=== PATIENT | male | born 1980 | race Caucasian/White ===

== ENCOUNTER 2017-02-23 10:23 | Observation (INO) | payer BC ==
[2017-02-23] VITALS (13 sets, daily range): BP systolic 116–143; BP diastolic 76–92; PULSE 48–66; RESP 18; TEMP 97.9; O2SAT 95–98
[~2017-02-23] VITALS: Ht 182.9 cm; Wt 101.9 kg
[~2017-02-23 10:23] MED LIST: AMIO200T PO; Aspirin Chew PO; CELE40TA PO; CLON1TAB PO; ISOS30TA3 PO; LIPI40TA PO; LISI-519 PO; METF1000 PO; METO-338 PO; OMEP40CA2 PO; PLAV75TA29 PO
[2017-02-23] MEDS ORDERED: LISI-519 PO (10:37)
[2017-02-23] MEDS ORDERED: METO25TA3 PO (10:37)
[2017-02-23] MEDS ORDERED: ASPI81CH37 CHEW (10:37)
[2017-02-23] MEDS ORDERED: PARO20TA2 PO (10:37)
--- NOTE | 2017-02-23 10:39 | PD ---
HPI Chief Complaint: Chest Pain Time Seen by Provider: 10:36 Travel History International Travel<30 days: No Contact w/Intl Traveler<30days: No Traveled to known affect area: No History of Present Illness HPI 36-year-old male with history of previous [place], hypertension, diabetes, presents to the ER today for 3 days history of substernal 3 out of 10 chest discomfort which she states is constant. He denies any nausea, vomiting, but did have some shortness of breath when he picked up his son a few days ago. He denies any fevers, coughing, or other symptoms. Modifying Factors: None Associated Signs & Symptoms: Substernal chest pain Risk Factors: Cardiac history PFSH Past Medical History Anxiety: Yes Heart Rhythm Problems: No Cardiac Catheterization: No Cardiovascular Problems: Yes High Cholesterol: Yes Chest Pain: Yes Congestive Heart Failure: No Coronary Artery Disease: Yes Diabetes: Yes Patient Takes Glucophage: No Diminished Hearing: No Hypertension: Yes Inguinal Hernia: Yes (REPAIRED) Kidney Stones: Yes Neurologic: Yes (OCD, PANIC ATTACKS) Psychiatric: Yes (OCD, PANIC ATTACKS) Immunizations Current: Yes Myocardial Infarction: No Influenza Vaccination: No ?: Not Past Surgical History Abdominal Surgery: Yes (BILATERAL INGUINAL HERNIA REPAIR AT 5 YEARS OLD) Coronary Artery Bypass Graft: No Other Surgery: Yes Social History 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) Tobacco Use: No (quit) Substance Use: No Allergies-Medications (Allergen,Severity, Reaction): Uncoded Allergies: SNUGGLE FABRIC SOFTENER (Allergy, Severe, Rash, 04/21/16) Reported Meds & Prescriptions Reported Meds & Active Scripts Active Lipitor (Atorvastatin Calcium) 40 Mg Tab 40 Mg PO HS Isosorbide Mononitrate ER (Isosorbide Mononitrate) 30 Mg Raf 30 Mg PO DAILY@07 Plavix (Clopidogrel Bisulfate) 75 Mg Tab 75 Mg PO DAILY 30 Days Reported Paroxetine (Paroxetine HCl) 20 Mg Tab 25 Mg PO DAILY Metoprolol Tartrate 25 Mg Tab 12.5 Mg PO BID Aspirin Low Dose (Aspirin) 81 Mg Chew 81 Mg CHEW DAILY Lisinopril 5 Mg Tab 5 Mg PO HS Clonazepam 1 Mg Tab 1 Mg PO HS Review of Systems Except as stated in HPI: all other systems reviewed are Neg Physical Exam Narrative GENERAL: Well-developed middle age male patient currently in mild distress. Awake and oriented 3. SKIN: Focused skin assessment warm/dry. HEAD: Atraumatic. Normocephalic. EYES: Pupils equal and round. No scleral icterus. No injection or drainage. ENT: No nasal bleeding or discharge. Mucous membranes pink and moist. NECK: Trachea midline. No JVD. CARDIOVASCULAR: Regular rate and rhythm. No murmur appreciated. Pulses are present and equal bilaterally. RESPIRATORY: No accessory muscle use. Clear to auscultation. Breath sounds equal bilaterally. GASTROINTESTINAL: Abdomen soft, non-tender, nondistended. Hepatic and splenic margins not palpable. MUSCULOSKELETAL: No obvious deformities. No clubbing. No cyanosis. No edema. NEUROLOGICAL: Awake and alert. No obvious cranial nerve deficits. Motor grossly within normal limits. Normal speech. PSYCHIATRIC: Appropriate mood and affect; insight and judgment normal. Data Data Last Documented VS Vital Signs Date Time Temp Pulse Resp B/P (MAP) Pulse Ox O2 Delivery O2 Flow Rate FiO2 02/23/17 11:26 50 18 140/77 (98) 98 Room Air Orders Orders Electrocardiogram (02/23/17 10:36) Ckmb (Isoenzyme) Profile (02/23/17 10:36) Complete Blood Count With Diff (02/23/17 10:36) Comprehensive Metabolic Panel (02/23/17 10:36) Magnesium (Mg) (02/23/17 10:36) Prothrombin Time / Inr (Pt) (02/23/17 10:36) Act Partial Throm Time (Ptt) (02/23/17 10:36) Troponin I (02/23/17 10:36) Chest, Single Ap (02/23/17 10:36) Ecg Monitoring (02/23/17 10:36) Bilateral Bp Monitoring (02/23/17 10:36) Iv Access Insert/Monitor (02/23/17 10:36) Oximetry (02/23/17 10:36) Oxygen Administration (02/23/17 10:36) Aspirin Chew (Aspirin Chew) (02/23/17 10:45) Nitroglycerin 2% Oint (Nitroglycerin 2% (02/23/17 10:45) Sodium Chloride 0.9% Flush (Ns Flush) (02/23/17 10:45) Consult Cardiology (02/23/17 ) (Hub Use Only)Inp Phy Cons/Ref (02/23/17 ) Labs Laboratory Tests Test 02/23/17 10:30 White Blood Count 5.5 TH/MM3 Red Blood Count 4.49 MIL/MM3 Hemoglobin 13.8 GM/DL Hematocrit 40.5 % Mean Corpuscular Volume 90.3 FL Mean Corpuscular Hemoglobin 30.8 PG Mean Corpuscular Hemoglobin Concent 34.1 % Red Cell Distribution Width 11.7 % Platelet Count 140 TH/MM3 Mean Platelet Volume 7.9 FL Neutrophils (%) (Auto) 59.0 % Lymphocytes (%) (Auto) 28.5 % Monocytes (%) (Auto) 9.8 % Eosinophils (%) (Auto) 1.6 % Basophils (%) (Auto) 1.1 % Neutrophils # (Auto) 3.2 TH/MM3 Lymphocytes # (Auto) 1.6 TH/MM3 Monocytes # (Auto) 0.5 TH/MM3 Eosinophils # (Auto) 0.1 TH/MM3 Basophils # (Auto) 0.1 TH/MM3 CBC Comment DIFF FINAL Differential Comment Prothrombin Time 11.4 SEC Prothromb Time International Ratio 1.0 RATIO Activated Partial Thromboplast Time 27.8 SEC Blood Urea Nitrogen 9 MG/DL Creatinine 0.77 MG/DL Random Glucose 169 MG/DL Total Protein 7.3 GM/DL Albumin 4.0 GM/DL Calcium Level 8.3 MG/DL Magnesium Level 1.7 MG/DL Alkaline Phosphatase 69 U/L Aspartate Amino Transf (AST/SGOT) 18 U/L Alanine Aminotransferase (ALT/SGPT) 35 U/L Total Bilirubin 0.7 MG/DL Sodium Level 139 MEQ/L Potassium Level 4.2 MEQ/L Chloride Level 103 MEQ/L Carbon Dioxide Level 27.9 MEQ/L Anion Gap 8 MEQ/L Estimat Glomerular Filtration Rate 113 ML/MIN Total Creatine Kinase 95 U/L Troponin I LESS THAN 0.02 NG/ML MDM Medical Decision Making Medical Screen Exam Complete: Yes Emergency Medical Condition: Yes Medical Record Reviewed: Yes Interpretation(s) EKG shows sinus bradycardia at a rate of 52 bpm with T-wave inversions in 3 and aVF. No signs of acute ST-T elevations. Laboratory Tests Test 02/23/17 10:30 Red Blood Count 4.49 MIL/MM3 (4.50-5.90) Platelet Count 140 TH/MM3 (150-450) Monocytes (%) (Auto) 9.8 % (0.0-8.0) Random Glucose 169 MG/DL (74-106) Calcium Level 8.3 MG/DL (8.5-10.1) Troponin I LESS THAN 0.02 NG/ML Last 24 hours Impressions Chest X-Ray 02/23/17 1036 Signed Impressions: Service Date/Time: Thursday, February 23, 2017 10:42 - CONCLUSION: No acute disease. Sunny Horton MD FACR Differential Diagnosis Substernal chest pains: ACS versus musculoskeletal versus anxiety versus dysrhythmia Narrative Course EKG did not show any signs of acute ST elevation or depressions. Cardiac enzymes are negative. Patient was given aspirin and nitroglycerin in the ER with some improvement chest discomfort. At this point, the case was discussed with who is covering for Dr. James and he states the patient to be transferred to [facility] for admission medically and consult to cardiology. He states that the patient has significant cardiac risk factors. Case is discussed with Dr. Blancas for admission. Diagnosis Primary Impression: Chest pain Admitting Information Admitting Physician Requests: Admit Jamal Kathleen MD Feb 23, 2017 10:39
[2017-02-23] MEDS ORDERED: SODIUM CHLORIDE 0.9% FLUSH 10 ML FLUSH IVF PRN (10:45)
[2017-02-23] MEDS ORDERED: NITROGLYCERIN 2% OINT 1 GM PACKET TOP ONE (10:45)
[2017-02-23] MEDS ORDERED: ASPIRIN 81 MG CHEW TAB PO ONE (10:45)
[2017-02-23 10:53] LABS: AUTOMATED NEUTROPHIL # 3.2 TH/MM3 (1.8-7.7); BASOPHIL # 0.1 TH/MM3 (0-0.2); BASOPHIL % 1.1 % (0.0-2.0); EOSINOPHIL # 0.1 TH/MM3 (0-0.4); EOSINOPHIL % 1.6 % (0.0-4.0); HEMATOCRIT 40.5 % (39.0-51.0); HEMO FLAGS DIFF FINAL; LYMPH % 28.5 % (9.0-44.0); LYMPHOCYTE # 1.6 TH/MM3 (1.0-4.8); MEAN CELL VOLUME 90.3 FL (80.0-100.0); MEAN CORPUSCULAR HEMOGLOBIN 30.8 PG (27.0-34.0); MEAN CORPUSCULAR HGB CONC 34.1 % (32.0-36.0); MONO % 9.8 % (0.0-8.0); PLATELET COUNT 140 TH/MM3 (150-450); RED BLOOD COUNT 4.49 MIL/MM3 (4.50-5.90); RED CELL DISTRIBUTION WIDTH 11.7 % (11.6-17.2); WHITE BLOOD COUNT 5.5 TH/MM3 (4.0-11.0)
--- NOTE | 2017-02-23 10:59 | RADRPT ---
EXAM DATE/TIME: 02/23/2017 10:42 [facility] COMPARISON: CHEST SINGLE AP, April 23, 2016, 7:49. INDICATIONS : Chest pain MEDICAL HISTORY : Myocardial infarction. Diabetes mellitus type II. Hypercholesterolemia. Hypertension, CAD, Smoker SURGICAL HISTORY : Cardiac catherization ENCOUNTER: Initial ACUITY: 4 - 6 days PAIN SCORE: 4/10 LOCATION: Bilateral chest FINDINGS: A single view of the chest demonstrates the lungs to be symmetrically aerated without evidence of mas s, infiltrate or effusion. The cardiomediastinal contours are unremarkable. Osseous structures are intact. CONCLUSION: No acute disease. Sunny Horton MD FACR on February 23, 2017 at 10:51 Board Certified Radiologist. This report was verified electronically.
[2017-02-23 11:00] LABS: CHLORIDE 103 MEQ/L (98-107); POTASSIUM 4.2 MEQ/L (3.5-5.1); SODIUM (NA) 139 MEQ/L (136-145)
[2017-02-23 11:03] LABS: ANION GAP 8 MEQ/L (5-15); BICARBONATE 27.9 MEQ/L (21.0-32.0)
[2017-02-23 11:04] LABS: BLOOD UREA NITROGEN 9 MG/DL (7-18); MAGNESIUM 1.7 MG/DL (1.5-2.5)
[2017-02-23 11:05] LABS: APTT (PATIENT) 27.8 SEC (24.3-30.1); PROTHROMBIN TIME - PATIENT 11.4 SEC (9.8-11.6)
[2017-02-23 11:06] LABS: ALT (GPT) 35 U/L (12-78)
[2017-02-23 11:07] LABS: AST (GOT) 18 U/L (15-37); GLOMERULAR FILTRATION RATE 113 ML/MIN (>89)
[2017-02-23 11:08] LABS: TOTAL BILIRUBIN ADULT 0.7 MG/DL (0.2-1.0)
[2017-02-23 11:09] LABS: ALKALINE PHOSPHATASE 69 U/L (45-117)
[2017-02-23 11:21] LABS: CREATINE KINASE 95 U/L (39-308)
[2017-02-23] MEDS ORDERED: SODIUM CHLORIDE 0.9% FLUSH 10 ML FLUSH IV FLUSH PRN (12:15)
[2017-02-23] MEDS: METOPROLOL TARTRATE 25 MG TAB PO SCH ×2 (12:15→21:19)
[2017-02-23] MEDS: CLOPIDOGREL 75 MG TAB PO SCH (12:15)
[2017-02-23] MEDS: ENOXAPARIN SODIUM 40 MG/0.4 ML SYRINGE SQ SCH (13:02)
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
[2017-02-23] MEDS ORDERED: DEXTROSE 50% IN WATER 50 ML VIAL(D50) IV PRN (15:00)
[2017-02-23] MEDS ORDERED: GLUCAGON 1 MG/ML VIAL OTHER PRN (15:00)
[2017-02-23] MEDS: INSULIN ASPART SUPPLEMENTAL SCALE SQ SCH ×2 (16:15→21:00)
[2017-02-23] MEDS: ACETAMINOPHEN 500 MG CPLT PO PRN ×2 (16:44→23:25)
[2017-02-23 17:24] LABS: CREATINE KINASE 83 U/L (39-308)
--- NOTE | 2017-02-23 21:03 | EKG ---
Date Performed: 02/23/2017 Time Performed: 10:29:53 PTAGE: 36 years EKG: SINUS BRADYCARDIA INFERIOR MYOCARDIAL INFARCTION ABNORMAL ECG Compared to the PREVIOUS TRACING inferior ST elevation no longer present DOCTOR: Alexander James Interpretating Date/Time 02/23/2017 21:02:12
[2017-02-23] MEDS: LISINOPRIL 5 MG TAB PO SCH (21:19)
[2017-02-23] MEDS: clonazePAM 1 MG TAB PO SCH (21:19)
[2017-02-23] MEDS: SODIUM CHLORIDE 0.9% FLUSH 10 ML FLUSH IV FLUSH SCH (21:19)
[2017-02-23] MEDS: ATORVASTATIN 40 MG TAB PO SCH (21:19)
[2017-02-24] VITALS (24 sets, daily range): BP systolic 125–142; BP diastolic 78–83; PULSE 47–102; RESP 18–20; TEMP 98–99.2; O2SAT 94–97
[2017-02-24 01:32] LABS: CREATINE KINASE 65 U/L (39-308)
[2017-02-24] MEDS: ISOSORBIDE MONONITRATE 30 MG TAB PO SCH (06:02)
[2017-02-24 07:09] LABS: HDL CHOLESTEROL 31.4 MG/DL (40.0-60.0)
[2017-02-24] MEDS: INSULIN ASPART SUPPLEMENTAL SCALE SQ SCH ×4 (08:00→20:42)
[2017-02-24] MEDS: ASPIRIN 325 MG TAB PO SCH (08:14)
[2017-02-24] MEDS: METOPROLOL TARTRATE 25 MG TAB PO SCH ×2 (08:14→20:36)
[2017-02-24] MEDS: CLOPIDOGREL 75 MG TAB PO SCH (08:14)
[2017-02-24] MEDS: SODIUM CHLORIDE 0.9% FLUSH 10 ML FLUSH IV FLUSH SCH ×2 (08:14→20:36)
[2017-02-24] MEDS: PARoxetine 25 MG CONTROLLED RELEASE TAB PO SCH (08:20)
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
[2017-02-24] MEDS: ENOXAPARIN SODIUM 40 MG/0.4 ML SYRINGE SQ SCH (12:11)
--- NOTE | 2017-02-24 14:30 | EKG ---
Date Performed: 02/23/2017 Time Performed: 22:20:42 PTAGE: 36 years EKG: Sinus rhythm Inferior myocardial infarction, age undetermined Nonspecific T wave changes anteriorly Since previou s tracing T-waves somewhat more flattened and inverted anteriorly, otherwise no significant change Ab normal ECG PREVIOUS TRACING : 02/23/2017 16.18 DOCTOR: Jacob Love Interpretating Date/Time 02/24/2017 14:30:11
--- NOTE | 2017-02-24 14:30 | EKG ---
Date Performed: 02/23/2017 Time Performed: 16:18:21 PTAGE: 36 years EKG: SINUS BRADYCARDIA INFERIOR MYOCARDIAL INFARCTION Compared to previous tracing no significan t change ABNORMAL ECG PREVIOUS TRACING : 02/23/2017 10.29 DOCTOR: Jacob Love Interpretating Date/Time 02/24/2017 14:29:00
[2017-02-24 16:14] LABS: HEMOGLOBIN A1b 1.6 %; HEMOGLOBIN Ao 85.4 %; HEMOGLOBIN LA1C 1.9 %; HEMOGLOBIN P3 3.6 %
--- NOTE | 2017-02-24 18:44 | HHI.PR ---
Subjective Remarks pt says his pain has been almost gone, says it is a little relieved with belching Objective Vital Signs Date Time Temp Pulse Resp B/P (MAP) Pulse Ox O2 Delivery O2 Flow Rate FiO2 02/24/17 18:07 68 02/24/17 17:36 102 02/24/17 17:30 98.9 62 18 138/83 (101) 97 02/24/17 14:44 72 02/24/17 13:01 63 02/24/17 12:00 64 02/24/17 11:00 54 02/24/17 11:00 98.1 60 18 142/83 (102) 97 02/24/17 10:11 56 02/24/17 09:00 58 02/24/17 08:51 56 02/24/17 07:00 98.7 62 18 129/79 (96) 97 02/24/17 07:00 63 02/24/17 06:00 52 02/24/17 05:00 51 02/24/17 04:00 49 02/24/17 03:30 98.0 55 18 125/78 (94) 97 02/24/17 03:00 49 02/24/17 02:00 53 02/24/17 01:00 47 02/24/17 00:00 57 02/23/17 23:30 97.9 65 18 130/83 (99) 95 02/23/17 23:00 58 02/23/17 22:00 52 02/23/17 21:30 58 02/23/17 21:30 62 18 134/92 (106) 97 02/23/17 20:21 62 18 98 02/23/17 20:20 62 18 136/78 (97) 98 Room Air 02/23/17 19:28 66 Room Air 21 02/23/17 19:26 66 18 142/85 (104) 97 Room Air I/O 02/23/17 02/23/17 02/23/17 02/24/17 02/24/17 02/24/17 07:00 15:00 23:00 07:00 15:00 23:00 Intake Total 360 ml 360 ml 480 ml 650 ml Output Total 300 ml 900 ml 1000 ml 900 ml Balance 60 ml -540 ml -520 ml -250 ml Intake Oral 360 ml 360 ml 480 ml 650 ml Output Urine Total 300 ml 900 ml 1000 ml 900 ml # Voids 1 2 # Bowel Movements 0 1 Result Diagram: 02/23/17 1030 02/23/17 1030 Objective Remarks No acute distress Respiratory: Nonlabored breathing, no dyspnea Cardiovascular: Regular rate and rhythm, no murmurs A/P Assessment and Plan Unstable angina 36-year-old male with known history of coronary disease, hypertension, hyperlipidemia completely excluded RCA by previous cardiac catheterization presented with persistent chest discomfort relieved by nitroglycerin [place] trended negative ruling out myocardial infarction EKG shows sinus bradycardia, T-wave changes in lead II and aVF. Continue to trend EKGs Cardiology consulted, no intervention today, I will change the patient nothing by mouth after midnight in touch base cardiology in the morning to see if nuclear stress test is warranted aspirin, beta isidro, nitroglycerin, statin, BUBBA inhibitor, Plavix Diabetes Check hemoglobin A1c Accu-Cheks with sliding scale insulin DVT prevention Subcutaneous Lovenox Jarrett Mccoy MD Feb 24, 2017 18:44
[2017-02-24] MEDS: LISINOPRIL 5 MG TAB PO SCH (20:35)
[2017-02-24] MEDS: ATORVASTATIN 40 MG TAB PO SCH (20:36)
[2017-02-24] MEDS: clonazePAM 1 MG TAB PO SCH (20:36)
[2017-02-25] VITALS (20 sets, daily range): BP systolic 106–131; BP diastolic 60–91; PULSE 50–71; RESP 20; TEMP 98–98.8; O2SAT 96–98
[2017-02-25] MEDS: ISOSORBIDE MONONITRATE 30 MG TAB PO SCH (06:51)
[2017-02-25] MEDS: INSULIN ASPART SUPPLEMENTAL SCALE SQ SCH ×2 (08:00→12:00)
[2017-02-25] MEDS: PARoxetine 25 MG CONTROLLED RELEASE TAB PO SCH (08:29)
[2017-02-25] MEDS: METOPROLOL TARTRATE 25 MG TAB PO SCH (08:29)
[2017-02-25] MEDS: ASPIRIN 325 MG TAB PO SCH (08:29)
[2017-02-25] MEDS: SODIUM CHLORIDE 0.9% FLUSH 10 ML FLUSH IV FLUSH SCH (08:29)
[2017-02-25] MEDS: CLOPIDOGREL 75 MG TAB PO SCH (08:32)
[2017-02-25] MEDS: ENOXAPARIN SODIUM 40 MG/0.4 ML SYRINGE SQ SCH (13:00)
--- NOTE | 2017-02-25 14:09 | PD.CARD.PN ---
Subjective Subjective Remarks No CP or SOB, ambulating without difficulty Objective Vital Signs / I&O Vital Signs Date Time Temp Pulse Resp B/P (MAP) Pulse Ox O2 Delivery O2 Flow Rate FiO2 02/25/17 13:49 63 02/25/17 12:10 62 02/25/17 11:38 98.8 71 20 123/81 (95) 98 02/25/17 11:00 62 02/25/17 10:27 58 02/25/17 09:29 58 02/25/17 08:00 62 02/25/17 07:00 61 02/25/17 07:00 98.0 62 20 131/91 (104) 96 02/25/17 06:00 61 02/25/17 05:15 98.3 62 20 106/60 (75) 97 02/25/17 05:00 50 02/25/17 04:00 51 02/25/17 03:00 64 02/25/17 02:00 60 02/25/17 01:00 60 02/25/17 00:00 98.2 62 20 113/67 (82) 98 02/25/17 00:00 56 02/25/17 00:00 98.2 62 20 113/67 (82) 98 02/24/17 23:00 50 02/24/17 22:00 60 02/24/17 21:00 58 02/24/17 20:00 64 02/24/17 20:00 99.2 65 20 127/81 (96) 94 02/24/17 19:00 63 02/24/17 18:07 68 02/24/17 17:36 102 02/24/17 17:30 98.9 62 18 138/83 (101) 97 02/24/17 14:44 72 I/O 02/24/17 02/24/17 02/24/17 02/25/17 02/25/17 02/25/17 07:00 15:00 23:00 07:00 15:00 23:00 Intake Total 480 ml 650 ml 480 ml Output Total 1000 ml 900 ml 400 ml Balance -520 ml -250 ml 80 ml Intake Oral 480 ml 650 ml 480 ml IV Total 0 ml Output Urine Total 1000 ml 900 ml 400 ml # Bowel Movements 0 1 0 Physical Exam GENERAL: In NAD. SKIN: Warm and dry. HEAD: Normocephalic. EYES: No scleral icterus. No injection or drainage. NECK: Supple, trachea midline. No JVD or lymphadenopathy. CARDIOVASCULAR: Regular rate and rhythm without murmurs, gallops, or rubs. RESPIRATORY: Breath sounds equal bilaterally. No accessory muscle use. GASTROINTESTINAL: Abdomen soft, non-tender, nondistended. MUSCULOSKELETAL: No cyanosis, or edema. Assessment and Plan Problem List: (1) Chest pain ICD Codes: R07.9 - Chest pain, unspecified Status: Acute (2) HTN (hypertension) ICD Codes: I10 - Essential (primary) hypertension Status: Acute (3) Hyperlipidemia ICD Codes: E78.5 - Hyperlipidemia, unspecified Status: Acute (4) Diabetes 1.5, managed as type 2 ICD Codes: E13.9 - Other specified diabetes mellitus without complications Status: Acute (5) CAD (coronary artery disease) ICD Codes: I25.10 - Atherosclerotic heart disease of [place] coronary artery without angina pectoris Assessment and Plan No recurrent CP. Symptoms likely of musculoskeletal/chest wall origin. Feels better. Enzymes negative. Rhythm stable. DC home. Will schedule f/u with me next week. Alexander James MD Feb 25, 2017 14:09
--- NOTE | 2017-02-25 15:33 | HHI.DCPOC ---
Discharge Care Plan Goals to Promote Your Health * To prevent worsening of your condition and complications * To maintain your health at the optimal level musculoskeletal chest pain Directions to Meet Your Goals Take your medications as prescribed Follow your dietary instruction Follow activity as directed Keep your appointments as scheduled Take your immunizations and boosters as scheduled If your symptoms worsen call your PCP, if no PCP go to Urgent Care Center or Emergency Room Smoking is Dangerous to Your Health. Avoid second hand smoke Call the 24-hour hour crisis hotline for domestic abuse at Jarrett Mccoy MD Feb 25, 2017 15:33
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
== END 2017-02-25 17:07 | disposition home or self-care (01) ==
LOC: PHED 10:23 → INTOOBSV 12:15 → PHEDA 12:15 → HCIS 20:49
PROVIDERS: ADMIT Hospitalist; ATTEND Hospitalist
DX: R07.89 Other chest pain (principal); I25.10 Atherosclerotic heart disease of native coronary artery without angina pectoris; I10 Essential (primary) hypertension; I25.2 Old myocardial infarction; E11.9 Type 2 diabetes mellitus without complications; I48.91 Unspecified atrial fibrillation; E78.00 Pure hypercholesterolemia, unspecified; R20.9 Unspecified disturbances of skin sensation; R94.31 Abnormal electrocardiogram [ECG] [EKG]; Z95.810 Presence of automatic (implantable) cardiac defibrillator; Z79.84 Long term (current) use of oral hypoglycemic drugs; Z87.891 Personal history of nicotine dependence
CPT/HCPCS: 71010; 80053; 80061; 82550; 82948; 83036; 83735; 84484; 85025; 85610; 85730; 93005; 96372; 99285; G0378; J1650; J1815